=== PATIENT | male | born 1980 | race Caucasian/White ===

== ENCOUNTER 2020-03-02 12:34 | Emergency (ER) | payer MEDICAID ==
[~2020-03-02] VITALS: Ht 162.6 cm; Wt 80.3 kg
[2020-03-02 12:59] VITALS: Ht 162.6 cm; Wt 80.3 kg
[2020-03-02 15:03] VITALS: BP 130/79
== END 2020-03-02 15:03 | disposition home or self-care (01) ==
LOC: EDBD 12:34 → ED 12:34
DX: S60.031A Contusion of right middle finger without damage to nail, initial encounter (principal); W22.8XXA Striking against or struck by other objects, initial encounter; Y93.89 Activity, other specified; Y92.89 Other specified places as the place of occurrence of the external cause; Y99.8 Other external cause status
CPT/HCPCS: Q0092